=== PATIENT | male | born 1960 | race Caucasian/White ===

== ENCOUNTER → 2019-11-20 16:10 | Outpatient (CLI) | payer OTHER, SELFPAY ==
--- NOTE | ~2019-11-20 | XR_ITS ---
EXAMINATION: XR lumbar spine min 4V DATE: 11/20/2019 16:33 INDICATION: Lumbago with left-sided sciatica. TECHNIQUE: 5 views of lumbar spine were obtained. COMPARISON: None. FINDINGS: There is 3 degrees dextrocurvature of lumbar spine. There is 4 mm anterolisthesis of L3 on L4. There are chronic bilateral L5 pars defects. There is 8 mm anterolisthesis of L5 on S1. There is mild chronic height loss of L5 vertebral body posteriorly. There is mildly decreased disc height at L 2-L3, moderately decreased disc height at L3-L4, mildly decreased disc height at L4-L5, and severely decreased disc height at L5-S1. There is multilevel mild to moderate facet joint osteoarthritis. IMPRESSION: 1. Severe lumbar spondylosis. 2. Chronic bilateral L5 pars defects with grade 1 anterolisthesis of L5 on S1. Reviewed, dictated and finalized at location A. LIBRARY DIRECTOR
--- NOTE | ~2019-11-20 | XR_ITS ---
EXAMINATION: XR chest 2V DATE: 11/20/2019 16:32 INDICATION: Abnormal weight loss. Cough. Smoker. TECHNIQUE: Frontal and lateral views of the chest were obtained. COMPARISON: None. FINDINGS: The chest demonstrates clear lungs without pneumonia, pleural effusion, or pneumothorax. Th e heart size is normal. IMPRESSION: 1. No acute cardiopulmonary disease. Reviewed, dictated and finalized at location A. WORKER MACHINE
== END ==
PROVIDERS: PCP Family Medicine; Visit Provider Family Medicine
DX: R63.4 Abnormal weight loss (principal); G89.29 Other chronic pain; M54.42 Lumbago with sciatica, left side; M47.896 Other spondylosis, lumbar region
CPT/HCPCS: 71046; 72110

== ENCOUNTER 2020-06-10 01:28 | Emergency (ER) | payer OTHER, SELFPAY ==
[2020-06-10 01:31] VITALS: BP 147/88; PULSE 84; RESP 18; TEMP 35.6; O2SAT 100
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
[2020-06-10 04:00] VITALS: BP 148/86; PULSE 82; RESP 18; TEMP 36.6; O2SAT 98
== END 2020-06-10 04:01 | disposition home or self-care (01) ==
PROVIDERS: Emergency Provider Emergency Medicine; PCP Family Medicine
DX: S05.02XA Injury of conjunctiva and corneal abrasion without foreign body, left eye, initial encounter (principal); M54.42 Lumbago with sciatica, left side; F17.210 Nicotine dependence, cigarettes, uncomplicated; W22.8XXA Striking against or struck by other objects, initial encounter
CPT/HCPCS: 99283; A9270

== ENCOUNTER → 2022-07-05 13:46 | Outpatient (CLI) | payer OTHER, SELFPAY ==
--- NOTE | ~2022-07-05 | CT_ITS ---
EXAMINATION: CT lung screening DATE: 07/05/2022 13:58 INDICATION: Personal history of nicotine dependence, current smoker with 40 pack year history TECHNIQUE: Computed tomography (CT) of the chest was performed without intravenous contrast. The dose -length product (DLP) was 86.72 mGy-cm. Automated exposure control and iterative reconstruction techn [employer] were employed. COMPARISON: None FINDINGS: There is mild emphysema. No suspicious pulmonary nodules are identified. The lungs are free of acute opacities. No pleural effusion or pneumothorax. Calcified coronary artery atherosclerosis i s noted. No pathologically enlarged thoracic lymph nodes are identified. The heart size is normal. Th ere is moderate thoracic spondylosis. IMPRESSION: 1. Lung-RADS category 1: Negative. Continue annual screening with noncontrast low-dose chest CT in 12 months. Reviewed, dictated and finalized at location A. IMPRESSION: 1. Lung-RADS category 1: Negative. Continue annual screening with noncontrast l ow-dose chest CT in 12 months.
== END ==
PROVIDERS: PCP Family Medicine; Visit Provider Nurse Practitioner Family
DX: Z12.2 Encounter for screening for malignant neoplasm of respiratory organs (principal); Z87.891 Personal history of nicotine dependence
CPT/HCPCS: 71271

== ENCOUNTER 2022-08-06 01:31 | Day surgery (SDC) | payer OTHER, SELFPAY ==
[2022-07-28 15:17] VITALS: BMI 22.7
[2022-08-06 09:03] VITALS: BP 118/76; PULSE 63; RESP 18; TEMP 36.3; O2SAT 99; BMI 22.6
[2022-08-06] MEDS: LACTATED RINGERS 1,000 ML 150 ML IV CONT (09:12)
--- NOTE | 2022-08-06 09:15 | PM.HPGS ---
History of Present Illness History of Present Illness Consent: Risks, benefits, and alternatives have been discussed and questions answered. Patient agrees to proceed with procedure. Chief complaint: neoplasm screening, family hx of colon cancer Narrative: Hai Saldaña is a 62 year old male Presents for screening colonoscopy. Patient's current appetite are normal. patient has lost a little bit of weight recently. He has had a tendency to constipation recently. Currently on MiraLax supplements. Patient denies any bleeding. He has had no abdominal pain. Patient's family history is significant that his mother had colon cancer. Patient had a colonoscopy 5 years ago that was unremarkable. He presents today for screening exam. Review of Systems Review of Systems: Review of systems noncontributory. [facility] Past Medical History Medical History (Updated 06/03/22 @ 12:58 by Omari Gracia MD) Abnormal weight loss Chest x-ray on 11/20/2019 was negative BMI 23.0-23.9, adult BMI 24.0-24.9, adult BMI 25.0-25.9,adult Chronic low back pain with bilateral sciatica Chronic low back pain with left-sided sciatica x-ray of the lumbar spine on 11/20/2019 with severe lumbar spondylosis and facet arthropathy. Encounter for prostate cancer screening PSA normal at 0.5 05/05/2021. PSA 0.45 on 05/10/2022. Encounter for wellness examination in adult Family history of colon cancer normal colonoscopy 2005. Normal colonoscopy 2016. Vitamin B12 deficiency (05/10/22) Level low at 349 with goal greater than 400 with hemoglobin 14.7 and folic acid 16.1 on 05/10/2022. Family History Family History Mother Hypertension Patient's mother is in good health Grandparent Family history of cardiovascular disease Acute myocardial infarction Cerebrovascular accident Social History Social History Smoking packs per day: 0.5 Smoking cigarettes per day: 10.0 Years smoked: 40 Smoking pack-years: 20.00 Smoking status: Current every day smoker Tobacco type: cigarettes Alcohol intake: never Substance use: never Substance use type: does not use Living arrangements: with family Gender identity (if verbalized by the patient): Male Spiritual care concerns: No Meds Home Medications and Allergies Home Medications Medication Instructions Recorded Confirmed Type lisinopril 10 mg tablet 10 mg PO DAILY #90 tabs 01/25/22 07/28/22 Rx simvastatin 40 mg tablet 40 mg PO DAILY #90 tabs 02/19/22 07/28/22 Rx cholecalciferol (vitamin D3) 50 3,000 unit PO DAILY 06/03/22 07/28/22 History mcg (2,000 unit) tablet cyanocobalamin (vitamin B-12) 1,000 mcg PO DAILY 06/03/22 07/28/22 History 1,000 mcg tablet meloxicam 15 mg tablet 15 mg PO DAILY PRN pain #90 tabs 06/03/22 07/28/22 Rx polyethylene glycol 3350 17 17 g PO BID 06/24/22 07/28/22 History gram/dose oral powder (Miralax) psyllium husk [Fiber (psyllium 1 tab-cap PO DAILY 06/24/22 07/28/22 History husk)] Allergies Allergy/AdvReac Type Severity Reaction Status Date / Time No Known Allergies Allergy Mild Verified 07/28/22 15:13 Vital Signs Vital Signs - 24 hr 08/06/22 09:03 Temperature 97.4 F L Pulse Rate 63 Respiratory Rate 18 Blood Pressure 118/76 Pulse Oximetry 99 Oxygen Delivery Room Air Exam Narrative: Physical exam reveals patient to be alert. Vital signs stable. HEENT exam is unremarkable. Patient is anicteric. Lungs are clear to auscultation and percussion. Heart is without murmur or extra sounds. Abdomen bowel sounds present soft nontender with no organomegaly. Digital external rectal exam is normal. Assessment and Plan Assessment and plan (1) Family history of colon cancer in mother: Code(s): Z80.0 - Family history of malignant neoplasm of digestive organs Status: Acute Assessment an
--- NOTE | 2022-08-06 09:29 | WPDANESEPPF ---
Anes - Initial Pre Proc Eval Procedure: Operation Date: 08/06/22 10:00 Proposed Procedures p Screening Colonoscopy - Hai Nevarez MD Date/Time: 08/06/22 09:29 Surgeon: Hai Nevarez MD Pre Op Diagnosis: neoplasm screening, family hx of colon cancer Patient Data Age: 62 Gender: M Height: 1.68 m Weight: 63.7 kg Last Vital Signs Temp 36.3 C L 08/06/22 09:03 Pulse 63 08/06/22 09:03 Resp 18 08/06/22 09:03 BP 118/76 08/06/22 09:03 Pulse Ox 99 08/06/22 09:03 O2 Del Method Room Air 08/06/22 09:03 Allergies Allergy/AdvReac Type Severity Reaction Status Date / Time No Known Allergies Allergy Mild Verified 07/28/22 15:13 Home Medications Medication Instructions Recorded Confirmed Type lisinopril 10 mg tablet 10 mg PO DAILY #90 tabs 01/25/22 07/28/22 Rx simvastatin 40 mg tablet 40 mg PO DAILY #90 tabs 02/19/22 07/28/22 Rx cholecalciferol (vitamin D3) 50 3,000 unit PO DAILY 06/03/22 07/28/22 History mcg (2,000 unit) tablet cyanocobalamin (vitamin B-12) 1,000 mcg PO DAILY 06/03/22 07/28/22 History 1,000 mcg tablet meloxicam 15 mg tablet 15 mg PO DAILY PRN pain #90 tabs 06/03/22 07/28/22 Rx polyethylene glycol 3350 17 17 g PO BID 06/24/22 07/28/22 History gram/dose oral powder (Miralax) psyllium husk [Fiber (psyllium 1 tab-cap PO DAILY 06/24/22 07/28/22 History husk)] Patient hx anesthesia problems: none Family hx anesthesia problems: none Results Review: All pre-operative results and documents have been reviewed as part of the pre-operative evaluation. [facility] Past Medical History Medical History Abnormal weight loss Chest x-ray on 11/20/2019 was negative BMI 23.0-23.9, adult BMI 24.0-24.9, adult BMI 25.0-25.9,adult Chronic low back pain with bilateral sciatica Chronic low back pain with left-sided sciatica x-ray of the lumbar spine on 11/20/2019 with severe lumbar spondylosis and facet arthropathy. Encounter for prostate cancer screening PSA normal at 0.5 05/05/2021. PSA 0.45 on 05/10/2022. Encounter for wellness examination in adult Family history of colon cancer normal colonoscopy 2005. Normal colonoscopy 2016. Vitamin B12 deficiency (05/10/22) Level low at 349 with goal greater than 400 with hemoglobin 14.7 and folic acid 16.1 on 05/10/2022. Surgical History Surgical History (Updated 08/06/22 @ 09:29 by Carlos Armenta MD) History of appendectomy Family History Family History Mother Hypertension Patient's mother is in good health Grandparent Family history of cardiovascular disease Acute myocardial infarction Cerebrovascular accident Social History Social History Smoking packs per day: 0.5 Smoking cigarettes per day: 10.0 Years smoked: 40 Smoking pack-years: 20.00 Smoking status: Current every day smoker Tobacco type: cigarettes Alcohol intake: never Substance use: never Substance use type: does not use Living arrangements: with family Gender identity (if verbalized by the patient): Male Spiritual care concerns: No Anes - Eval Final PreProcedure Day of Procedure 08/06/22 09:29 Patient weight: normal Heart: regular rate and rhythm Lungs: clear to auscultation Airway: Mallampati scale class II Last oral intake: >/= 8 hours ASA classification: II Emergent: no Anesthetic plan: proceed Anesthesia type and monitoring: general GIVS and standard monitoring Results Review: All pre-operative results and documents have been reviewed as part of the pre-operative evaluation. Informed Consent: The patient's anesthetic plan and its attendant risks and benefits were discussed with the patient/family/POA. Questions were solicited and answers provided to the satisfaction of the patient/family/POA.
[2022-08-06 09:58] VITALS: BP 103/70; PULSE 71; RESP 21; O2SAT 99
[2022-08-06 10:08] VITALS: BP 108/79; PULSE 71; RESP 19; O2SAT 99
[2022-08-06 10:18] VITALS: BP 124/81; PULSE 65; RESP 14; O2SAT 99
== END 2022-08-06 10:27 | disposition home or self-care (01) ==
PROVIDERS: PCP Family Medicine; Visit Provider Internal Medicine Gastroenterology
PROC: 0DJD8ZZ Inspection of Lower Intestinal Tract, Via Natural or Artificial Opening Endoscopic (ICD-10-PCS; CPT 45378; principal; 2022-08-06 10:00)
DX: Z12.11 Encounter for screening for malignant neoplasm of colon (principal); D12.5 Benign neoplasm of sigmoid colon; Z80.0 Family history of malignant neoplasm of digestive organs; F17.210 Nicotine dependence, cigarettes, uncomplicated
CPT/HCPCS: 45385; 88305; J2704; J7120

== ENCOUNTER → 2023-04-18 11:07 | Outpatient (CLI) | payer OTHER, SELFPAY ==
--- NOTE | ~2023-04-18 | XR_ITS ---
Lumbosacral Spine: AP, oblique, and lateral views Clinical History: Pain Findings: The normal lordotic curve is maintained. There is a 9 mm anterolisthesis of L3 over L4. The re is an approximate 13 mm anterolisthesis of L5 over S1, with suspected chronic bilateral L5 pars in terarticularis defects. There is severe degenerative disc narrowing at L3-L4, and moderate degenerati ve disc narrowing at L2-L3 and L5-S1. There is moderate facet arthropathy over the lower lumbar spine . The sacroiliac joints are normally outlined. Impression: 9 mm anterolisthesis of L3 over L4. 13 mm anterolisthesis of L5 over S1, with probable underlying bilateral L5 pars interarticularis defe cts. Additional moderate degenerative spondylitic changes, as detailed above. Reviewed, dictated and finalized at [facility] M. Impression: 9 mm anterolisthesis of L3 over L4. 13 mm anterolisthesis of L5 over S1, with probable underlying bilateral L5 pars interarticularis defects. Additional moderate degenerative spondylitic changes, as detailed above.
== END ==
PROVIDERS: PCP Family Medicine; Visit Provider Family Medicine
DX: M54.41 Lumbago with sciatica, right side (principal); M51.36 Other intervertebral disc degeneration, lumbar region
CPT/HCPCS: 72110

== ENCOUNTER → 2023-05-03 08:36 | Outpatient (CLI) | payer OTHER, SELFPAY ==
--- NOTE | ~2023-05-03 | MR_ITS ---
EXAMINATION: MR lumbar spine wo con DATE: 05/03/2023 09:23 INDICATION: Severe right-sided sciatica with acute worsening. TECHNIQUE: Magnetic resonance imaging (MRI) of the lumbar spine was performed without intravenous con trast. Sequences included sagittal T2-weighted FSE, sagittal T2-weighted FS FSE, sagittal T1-weighted FSE, and axial T2-weighted FSE. COMPARISON: Lumbar spine radiographs 04/18/2023 FINDINGS: There is 14 degrees dextroscoliosis of lumbar spine. There is 5 mm anterolisthesis of L3 on L4. There is 5 mm retrolisthesis of L4 on L5 and 9 mm anterolisthesis of L5 on S1. There are chronic bilateral L5 pars defects. There is moderately decreased disc height at L2-L3, severely decreased di sc height at L3-L4, moderately decreased disc height at L4-L5, and severely decreased disc height at L5-S1. There is 2/5 degenerative height loss of L5 vertebral body posteriorly. The distal spinal cord signal intensity is normal. The conus medullaris is at L1-L2. The following disc levels are specific ally discussed: L1-L2: The disc does not extend beyond the endplate margin. There is mild bilateral facet joint osteo arthritis. There is no neural foraminal stenosis. There is no central canal stenosis. L2-L3: The disc is bulging and has an annular fissure. There is severe bilateral facet joint osteoart hritis. There is moderate right and mild left neural foraminal stenosis. There is mild central canal stenosis. L3-L4: The disc is bulging. There is severe bilateral facet joint osteoarthritis. There is mild right and moderate left neural foraminal stenosis. There is moderate central canal stenosis. L4-L5: The disc is bulging with superimposed central extrusion. There is moderate bilateral facet linda nt osteoarthritis. There is moderate bilateral neural foraminal stenosis. There is mild central canal stenosis. L5-S1: The disc is bulging. There is moderate bilateral facet joint osteoarthritis. There is moderate bilateral neural foraminal stenosis. There is mild central canal stenosis. IMPRESSION: 1. Severe lumbar spondylosis. 2. Chronic bilateral L5 pars defects with grade 2 anterolisthesis of L5 on S1. 3. Lumbar dextroscoliosis. Reviewed, dictated and finalized at location A.
== END ==
PROVIDERS: PCP Family Medicine; Visit Provider Family Medicine
DX: M54.31 Sciatica, right side (principal); M47.816 Spondylosis without myelopathy or radiculopathy, lumbar region; M41.9 Scoliosis, unspecified
CPT/HCPCS: 72148